=== PATIENT | female | born 1980 | race Hispanic/Latino ===

== ENCOUNTER 2018-10-15 22:54 | Emergency (ER) | payer OTHER ==
[2018-10-15] MEDS ORDERED: DUONEB *Not for PRN Use IH ONE ×2 (23:02→23:09)
--- NOTE | 2018-10-16 00:27 | XRay Report ---
PROCEDURE: XR CHEST ROUTINE 2V TECHNIQUE: PA and lateral chest radiographs were obtained. HISTORY: cough and wheezing COMPARISONS: None. FINDINGS: Heart: Normal size. Mediastinum/Vessels: Normal. Lungs/Pleural space: Clear.. Bony thorax: No acute osseous abnormality. IMPRESSION: Negative examination. This document is electronically signed by Alex Bunn MD., October 16 2018 12:25:08 AM ET
[2018-10-16] MEDS ORDERED: PROVENTIL IH ONE (00:57)
[2018-10-16] MEDS ORDERED: ATROVENT IH ONE (00:57)
[2018-10-16] MEDS ORDERED: DECADRON IM ONE (00:58)
--- NOTE | 2018-10-16 01:18 | Emergency Department Report ---
ED Asthma HPI - General Chief Complaint: Adult Asthma Stated Complaint: DIFF BREATHING Time Seen by Provider: 10/16/18 00:51 Source: patient Mode of arrival: Ambulatory Limitations: No Limitations - History of Present Illness Initial Comments: Patient is a 37-year-old female presents to the emergency room with complaints of wheezing and shortness of breath that began 5 days ago. She has an associated dry cough and chest discomfort with frequent coughing. She denies any fever. She states she has a history of asthma and ran out of her albuterol inhaler yesterday. She states she works at [employer] and is frequently around smoke from [place] [employer]. She denies any other past medical history. - Related Data Previous Rx's Medication Instructions Recorded Last Taken Type ALBUTEROL Inhaler (OR & NICU) 2 puff IH QID PRN #1 inhalation 10/16/18 Unknown Rx [ProAir HFA Inhaler] Prednisone [predniSONE 10 mg 10 mg PO .TAPER #1 tab.ds.pk 10/16/18 Unknown Rx (6-Day Pack, 21 Tabs)] Allergies Allergy/AdvReac Type Severity Reaction Status Date / Time acetaminophen [From Percocet] Allergy Rash Verified 10/15/18 23:08 amoxicillin Allergy Swelling Verified 10/15/18 23:08 oxycodone [From Percocet] Allergy Rash Verified 10/15/18 23:08 ED Review of Systems ROS: Stated complaint: DIFF BREATHING Other details as noted in HPI Comment: All other systems reviewed and negative ED Past Medical Hx - Past Medical History Previous Medical History?: Yes Hx Asthma: Yes - Surgical History Past Surgical History?: No - Social History Smoking Status: Current Every Day Smoker Substance Use Type: None - Medications Home Medications: Home Medications Medication Instructions Recorded Confirmed Last Taken Type ALBUTEROL Inhaler (OR & NICU) 2 puff IH QID PRN #1 inhalation 10/16/18 Unknown Rx [ProAir HFA Inhaler] Prednisone [predniSONE 10 mg 10 mg PO .TAPER #1 tab.ds.pk 10/16/18 Unknown Rx (6-Day Pack, 21 Tabs)] ED Physical Exam - General Limitations: No Limitations General appearance: alert, in no apparent distress - Head Head exam: Present: atraumatic, normocephalic - Eye Eye exam: Present: normal appearance, PERRL - ENT ENT exam: Present: mucous membranes moist - Respiratory Respiratory exam: Present: wheezes (moderate diffuse), prolonged expiratory. Absent: respiratory distress, rales, rhonchi, stridor, chest wall tenderness, accessory muscle use, decreased breath sounds - Cardiovascular Cardiovascular Exam: Present: regular rate, normal rhythm, normal heart sounds. Absent: systolic murmur, diastolic murmur, rubs, gallop - Neurological Exam Neurological exam: Present: alert, oriented X3 - Psychiatric Psychiatric exam: Present: normal affect, normal mood - Skin Skin exam: Present: warm, dry, intact ED Course Vital Signs 10/16/18 10/16/18 10/16/18 01:28 01:49 02:18 Temperature 98.1 F Pulse Rate 75 Pulse Rate [ 78 69 Bilateral Throughout] Respiratory 16 Rate Respiratory 18 18 Rate [Bilateral Throughout] Blood Pressure 125/65 [Left] O2 Sat by Pulse 96 Oximetry - Reevaluation(s) Reevaluation #1: 10/16/18 01:18 pt given duoneb in triage, still with continued wheezing, ordered another neb tx and decadron. Reevaluation #2: 10/16/18 02:03 s/p second neb tx, wheezing has improved, good air movement, slight wheezing in the bases ED Medical Decision Making - Radiology Data Radiology results: report reviewed PROCEDURE: XR CHEST ROUTINE 2V TECHNIQUE: PA and lateral chest radiographs were obtained. HISTORY: cough and wheezing COMPARISONS: None. FINDINGS: Heart: Normal size. Mediastinum/Vessels: Normal. Lungs/Pleural space: Clear.. Bony thorax: No acute osseous abnormality. IMPRESSION: Negative examination. This document is electronically signed by Nikky Bunn MD., October 16 2018 12:25:08 AM ET Transcribed By: DFN Dictated By: NIKKY BUNN MD Electronically Authenticated By: NIKKY BUNN MD Signed Date/Time: 10/16/18 0027 - Medical Decision Making Patient is a 37-year-old female presents to the emergency room with complaints of wheezing and shortness of breath that began 5 days ago. She has an associated dry cough and chest discomfort with frequent coughing. She denies any fever. She states she has a history of asthma and ran out of her albuterol inhaler yesterday. She states she works at [employer] and is frequently around smoke from [employer]. She denies any other past medical history. pt given duo neb in triage, s/p neb tx continued wheezing. pt given second treatment with 5 mg albuterol and 0.5 atrovent, wheezing improved, good air movement, mild wheeze at the bases. vitals are normal. CXR with no acute process. pt given dexamethasone while in the ED. pt given prescription for albuterol and medrol dose pack. advised pt to please take medication as prescribed. Follow up with primary care doctor in the next 2-3 days. Return to the emergency room for any new or worsening symptoms. Critical care attestation.: If time is entered above; I have spent that time in minutes in the direct care of this critically ill patient, excluding procedure time. ED Disposition Clinical Impression: Asthma Qualifiers: Asthma severity: unspecified severity Asthma persistence: unspecified Asthma complication type: with acute exacerbation Qualified Code(s): J45.901 - Unspecified asthma with (acute) exacerbation Disposition: TO HOME OR SELFCARE Is pt being admited?: No Does the pt Need Aspirin: No Condition: Stable Instructions: Asthma (ED) Additional Instructions: Please take medication as prescribed. Follow up with primary care doctor in the next 2-3 days. Return to the emergency room for any new or worsening symptoms. Prescriptions: Prednisone [predniSONE 10 mg (6-Day Pack, 21 Tabs)] 10 mg PO .TAPER #1 tab.ds.pk ALBUTEROL Inhaler (OR & NICU) [ProAir HFA Inhaler] 2 puff IH QID PRN #1 inhalation PRN Reason: Shortness Of Breath Referrals: ROSAILA ORDONEZ MD [Primary Care Provider] - 2-3 Days [facility] [Outside] - 2-3 Days [facility] [Outside] - 2-3 Days Time of Disposition: 02:04 Print Language: RUSSIAN
[2018-10-16 02:20] VITALS: BP 125/65
== END 2018-10-16 02:18 | disposition home or self-care (01) ==
LOC: ED 22:54
DX: J45.901 Unspecified asthma with (acute) exacerbation (principal); F17.200 Nicotine dependence, unspecified, uncomplicated; Z88.6 Allergy status to analgesic agent; Z88.1 Allergy status to other antibiotic agents
CPT/HCPCS: 71046; 94640; 96372; 99283; J1100

== ENCOUNTER 2018-10-19 10:41 | Emergency (ER) | payer SELFPAY ==
[2018-10-19] MEDS ORDERED: ATROVENT IH ONE (10:48)
[2018-10-19] MEDS ORDERED: PROVENTIL IH ONE (10:48)
[2018-10-19] MEDS ORDERED: ADRENALINE P/F SUB-Q ONE (10:58)
[2018-10-19] MEDS ORDERED: MAGNESIUM SULFATE 2GM/50ML 2 GM/50 ML BAG IV ONE (10:58)
[2018-10-19] MEDS ORDERED: SOLU-Medrol IV ONE (10:58)
[2018-10-19] MEDS ORDERED: NACL 0.9% 1000 ML 1,000 ML IV ONE (10:59)
--- NOTE | 2018-10-19 11:04 | Emergency Department Report ---
ED Asthma HPI - General Chief Complaint: Dyspnea/Respdistress Stated Complaint: ASTHMA Time Seen by Provider: 10/19/18 10:54 Source: patient, RN notes reviewed, old records reviewed Mode of arrival: Ambulatory Limitations: No Limitations - History of Present Illness Initial Comments: This is a pleasant 37-year-old female. The patient does not known to this provider previously. The patient states she is not . The patient has a history of asthma. She was diagnosed at the age of 21. The patient's has 1 (hospitalization but no intubations. Patient maintained on Advair as an outpatient, but does not think it is really working for her. Presents to the ER today with a complaint of painless asthma exacerbation. Symptoms include cough, wheezing, shortness of breath. Patient believes triggers include hot weather, and possible pollen. The patient denies DVT, pulmonary embolism risk factors. She denies other complaints besides cough, wheezing, shortness of breath. MD Complaint: "asthma attack", shortness of breath, wheezing -: Gradual, hour(s) Asthma History: adult onset, history of prior ED visit Severity: moderate Context: allergen exposure Associated Symptoms: dry cough - Related Data Previous Rx's Medication Instructions Recorded Last Taken Type ALBUTEROL Inhaler (OR & NICU) 2 puff IH QID PRN #1 inhalation 10/19/18 Unknown Rx [ProAir HFA Inhaler] Prednisone [predniSONE 10 mg 10 mg PO .TAPER #1 tab.ds.pk 10/19/18 Unknown Rx (6-Day Pack, 21 Tabs)] Allergies Allergy/AdvReac Type Severity Reaction Status Date / Time acetaminophen [From Percocet] Allergy Rash Verified 10/15/18 23:08 amoxicillin Allergy Swelling Verified 10/15/18 23:08 oxycodone [From Percocet] Allergy Rash Verified 10/15/18 23:08 ED Review of Systems ROS: Stated complaint: ASTHMA Other details as noted in HPI Comment: All other systems reviewed and negative Respiratory: cough, shortness of breath, SOB with exertion, SOB at rest, wheezing Cardiovascular: dyspnea on exertion ED Past Medical Hx - Past Medical History Previous Medical History?: Yes Hx Asthma: Yes - Surgical History Past Surgical History?: No - Social History Smoking Status: Unknown if ever smoked Substance Use Type: None - Medications Home Medications: Home Medications Medication Instructions Recorded Confirmed Last Taken Type ALBUTEROL Inhaler (OR & NICU) 2 puff IH QID PRN #1 inhalation 10/19/18 Unknown Rx [ProAir HFA Inhaler] Prednisone [predniSONE 10 mg 10 mg PO .TAPER #1 tab.ds.pk 10/19/18 Unknown Rx (6-Day Pack, 21 Tabs)] ED Physical Exam - General Limitations: No Limitations General appearance: alert, in no apparent distress - Head Head exam: Present: atraumatic, normocephalic - Eye Eye exam: Present: normal appearance, EOMI. Absent: nystagmus - ENT ENT exam: Present: normal exam, normal orophraynx, mucous membranes moist, normal external ear exam - Neck Neck exam: Present: normal inspection, full ROM. Absent: tenderness, meningismus - Respiratory Respiratory exam: Present: respiratory distress, wheezes, rhonchi - Cardiovascular Cardiovascular Exam: Present: regular rate, normal rhythm, normal heart sounds. Absent: bradycardia, tachycardia, irregular rhythm, systolic murmur, diastolic murmur, rubs, gallop - GI/Abdominal GI/Abdominal exam: Present: soft. Absent: distended, tenderness, guarding, rebound, rigid, pulsatile mass - Extremities Exam Extremities exam: Present: normal inspection, full ROM, other (2+ pulses noted in the bilateral upper, lower extremities. Compartments soft. No long bony tenderness. The pelvis is stable.). Absent: pedal edema, calf tenderness - Back Exam Back exam: Present: normal inspection, full ROM. Absent: tenderness, CVA tenderness (R), CVA tenderness (L), paraspinal tenderness, vertebral tenderness - Neurological Exam Neurological exam: Present: alert, oriented X3, other (Extraocular movements intact. Tongue midline. No facial droop. Facial sensation intact to light touch in the V1, V2, V3 distribution bilaterally. 5 and 5 strength in 4 extremities.. Sensation is intact to light touch in 4 extremities.). Absent: motor sensory deficit - Psychiatric Psychiatric exam: Present: anxious - Skin Skin exam: Present: warm, dry, intact, normal color. Absent: rash ED Course Vital Signs 10/19/18 10/19/18 10/19/18 10:51 10:52 11:56 Temperature 97.8 F Pulse Rate 65 Pulse Rate [ 77 79 Anterior Bilateral] Respiratory 19 19 Rate Respiratory 17 12 Rate [Anterior Bilateral] Blood Pressure 126/71 [Left] O2 Sat by Pulse 99 99 Oximetry - Reevaluation(s) Reevaluation #1: 10/19/18 11:15 Differential diagnosis, including not limited to: Asthma, bronchitis, allergies Assessment and plan: 37-year-old female, with no DVT or pulmonary embolism risk factors, low risk by well's criteria, perc negative, recently seen at this hospital for asthma attack, had x-ray of the chest which was negative, initially had improved symptoms, she is new to [place], now with recurrent asthma attack. The patient is afebrile, with reassuring vital signs. She is watching movies on a cellular phone. We will treat her with albuterol, Atrovent, steroids, magnesium, fluids, and subcutaneous epinephrine. We will reassess. Reevaluation #2: 10/19/18 11:58 Patient feels much improved. Had a single episode of nausea and vomiting, now resolved. Work of breathing much improved. Wheezing much improved. Much improved from symptomatic and clinical standpoint. The patient endorses readiness for discharge. The patient indicates she was not able to get her prescriptions filled from her previous visit, secondary to financial issues. Patient was instructed on how to download the good Rx application on her cellular phone device, and how to find affordable and competitively [place] prescriptions. The patient will also be given a pharmacy discount card. I have also counseled the patient to follow-up in outpatient channel marketing manager for outpatient maintenance therapy. She has endorsed understanding. ED Medical Decision Making - Lab Data Vital Signs 10/19/18 10/19/18 10:51 10:52 Temperature 97.8 F Pulse Rate 65 Pulse Rate [ 77 Anterior Bilateral] Respiratory 19 19 Rate Respiratory 17 Rate [Anterior Bilateral] Blood Pressure 126/71 [Left] O2 Sat by Pulse 99 99 Oximetry - Radiology Data Radiology results: report reviewed, image reviewed Critical care attestation.: If time is entered above; I have spent that time in minutes in the direct care of this critically ill patient, excluding procedure time. ED Disposition Clinical Impression: Asthma Qualifiers: Asthma severity: moderate Asthma persistence: unspecified Asthma complication type: uncomplicated Qualified Code(s): J45.909 - Unspecified asthma, uncomplic ated Disposition: DC-01 TO HOME OR SELFCARE Is pt being admited?: No Does the pt Need Aspirin: No Condition: Stable Instructions: Asthma (ED) Additional Instructions: Take medications as needed/directed. Follow up with a primary care doctor or pu lmonologist within the next 2-4 weeks. Return to the emergency room right away with it, worsening or different symptoms, or symptoms not present on the initial emergency room evaluation. Referrals: ROSALIA ORDONEZ MD [Primary Care Provider] - 3-5 Days EBONY CHOI MD [Staff Physician] - 3-5 Days
[2018-10-19] MEDS ORDERED: ZOFRAN ONE (11:25)
[2018-10-19] MEDS ORDERED: ZOFRAN IV ONE (11:32)
[2018-10-19 12:21] VITALS: BP 118/70
== END 2018-10-19 12:21 | disposition home or self-care (01) ==
LOC: ED 10:41
DX: J45.901 Unspecified asthma with (acute) exacerbation (principal); R11.2 Nausea with vomiting, unspecified; Z88.5 Allergy status to narcotic agent; Z79.899 Other long term (current) drug therapy
CPT/HCPCS: 94640; 96365; 96372; 96375; 99284; J0171; J2405; J2930; J3475; J7030

== ENCOUNTER 2019-01-16 12:00 | Emergency (ER) | payer SELFPAY ==
[2019-01-16 12:06] VITALS: BP 130/85
[2019-01-16] MEDS ORDERED: IPRATROPIUM/ALBUTEROL SULFATE 3 ML AMPUL.NEB IH ONE (12:06)
--- NOTE | 2019-01-16 12:08 | Event Note ---
ED Screening Note Date of service: 01/16/19 Time: 12:05 ED Screening Note: This is a 38 y.o. F. that presents to the ER with SOB and wheezing for 2 weeks. PMH of asthma Increased use of inhalers and neb treatments without relief. Quit smoking 3 days ago This initial assessment/diagnostic orders/clinical plan/treatment(s) is/are subject to change based on patients health status, clinical progression and re- assessment by fellow clinical providers in the ED. Further treatment and workup at subsequent clinical providers discretion. Patient/guardian urged not to elope from the ED as their condition may be serious if not clinically assessed and managed. Initial orders include: CXR Duoneb
[2019-01-16] MEDS ORDERED: dexAMETHasone 20 MG/5 ML VIAL IM ONE (12:15)
[2019-01-16] MEDS ORDERED: IPRATROPIUM 0.02% NEBU 2.5 ML IH ONE (12:22)
[2019-01-16] MEDS ORDERED: ALBUTEROL 2.5 MG/3 ML NEBU IH ONE (12:22)
--- NOTE | 2019-01-16 13:18 | Emergency Department Report ---
ED Asthma HPI - General Chief Complaint: Adult Asthma Stated Complaint: ASTHMA ATTACK Time Seen by Provider: 01/16/19 12:04 Source: patient Mode of arrival: Ambulatory Limitations: No Limitations - History of Present Illness Initial Comments: This is a 38-year-old female nontoxic, well nourished in appearance, no acute signs of distress presents to the ED with c/o of acute on chronic asthma exacerbation. Patient denies any cough. Patient denies any sick contact. Patient denies any recent travels, long car, recent hospital stays. Patient denies any calf pain or calf tenderness. Patient denies any chest pain, short of breath, fever, chills, nausea, vomiting, hemoptysis, numbness, tingling, headache or stiff neck. Patient stated allergies amoxicillin, Acetaminophen, and oxycodone. MD Complaint: "asthma attack", shortness of breath, wheezing -: days(s) Asthma History: childhood onset Severity: mild Context: none known Associated Symptoms: none - Related Data Previous Rx's Medication Instructions Recorded Last Taken Type ALBUTEROL Inhaler (OR & NICU) 2 puff IH QID PRN #1 inhalation 10/19/18 Unknown Rx [ProAir HFA Inhaler] Prednisone [predniSONE 10 mg 10 mg PO .TAPER #1 tab.ds.pk 10/19/18 Unknown Rx (6-Day Pack, 21 Tabs)] ALBUTEROL Inhaler (OR & NICU) 2 puff IH QID PRN #1 inhalation 01/09/19 Unknown Rx [ProAir HFA Inhaler] Benzonatate [Tessalon Perles] 100 mg PO Q8HR #10 capsule 01/09/19 Unknown Rx predniSONE [Deltasone] 20 mg PO QDAY #5 tab 01/09/19 Unknown Rx ALBUTEROL Inhaler (OR & NICU) 2 puff IH QID PRN #1 inhalation 01/16/19 Unknown Rx [ProAir HFA Inhaler] ALBUTEROL NEB's [Proventil 0.083% 2.5 mg IH TID PRN #1 box 01/16/19 Unknown Rx NEBS] Prednisone [predniSONE 10 mg 10 mg PO .TAPER #1 tab.ds.pk 01/16/19 Unknown Rx (6-Day Pack, 21 Tabs)] Allergies Allergy/AdvReac Type Severity Reaction Status Date / Time acetaminophen [From Percocet] Allergy Rash Verified 10/15/18 23:08 amoxicillin Allergy Swelling Verified 10/15/18 23:08 oxycodone [From Percocet] Allergy Rash Verified 10/15/18 23:08 ED Review of Systems ROS: Stated complaint: ASTHMA ATTACK Other details as noted in HPI Constitutional: denies: chills, fever Eyes: denies: eye pain, eye discharge, vision change ENT: denies: ear pain, throat pain Respiratory: shortness of breath, wheezing. denies: cough Cardiovascular: denies: chest pain, palpitations Endocrine: no symptoms reported Gastrointestinal: denies: abdominal pain, nausea, diarrhea Genitourinary: denies: urgency, dysuria, discharge Musculoskeletal: denies: back pain, joint swelling, arthralgia Skin: denies: rash, lesions Neurological: denies: headache, weakness, paresthesias Psychiatric: denies: anxiety, depression Hematological/Lymphatic: denies: easy bleeding, easy bruising ED Past Medical Hx - Past Medical History Hx Asthma: Yes - Surgical History Past Surgical History?: No - Social History Smoking Status: Current Some Day Smoker Substance Use Type: None - Medications Home Medications: Home Medications Medication Instructions Recorded Confirmed Last Taken Type ALBUTEROL Inhaler (OR & NICU) 2 puff IH QID PRN #1 inhalation 10/19/18 Unknown Rx [ProAir HFA Inhaler] Prednisone [predniSONE 10 mg 10 mg PO .TAPER #1 tab.ds.pk 10/19/18 Unknown Rx (6-Day Pack, 21 Tabs)] ALBUTEROL Inhaler (OR & NICU) 2 puff IH QID PRN #1 inhalation 01/09/19 Unknown Rx [ProAir HFA Inhaler] Benzonatate [Tessalon Perles] 100 mg PO Q8HR #10 capsule 01/09/19 Unknown Rx predniSONE [Deltasone] 20 mg PO QDAY #5 tab 01/09/19 Unknown Rx ALBUTEROL Inhaler (OR & NICU) 2 puff IH QID PRN #1 inhalation 01/16/19 Unknown Rx [ProAir HFA Inhaler] ALBUTEROL NEB's [Proventil 0.083% 2.5 mg IH TID PRN #1 box 01/16/19 Unknown Rx NEBS] Prednisone [predniSONE 10 mg 10 mg PO .TAPER #1 tab.ds.pk 01/16/19 Unknown Rx (6-Day Pack, 21 Tabs)] ED Physical Exam - General Limitations: No Limitations General appearance: alert, in no apparent distress - Head Head exam: Present: atraumatic, normocephalic - Neck Neck exam: Present: normal inspection, full ROM. Absent: tenderness, meningismus, lymphadenopathy - Respiratory Respiratory exam: Present: normal lung sounds bilaterally, wheezes (bilateral ). Absent: respiratory distress, rales, rhonchi, stridor, chest wall tenderness, accessory muscle use, decreased breath sounds, prolonged expiratory - Cardiovascular Cardiovascular Exam: Present: regular rate, normal rhythm, normal heart sounds. Absent: systolic murmur, diastolic murmur, rubs, gallop - Extremities Exam Extremities exam: Present: normal inspection, full ROM, normal capillary refill. Absent: tenderness - Back Exam Back exam: Present: normal inspection, full ROM - Neurological Exam Neurological exam: Present: alert, oriented X3, normal gait - Psychiatric Psychiatric exam: Present: normal affect, normal mood - Skin Skin exam: Present: warm, dry, intact, normal color. Absent: rash ED Course Vital Signs 01/16/19 01/16/19 01/16/19 12:04 12:14 12:29 Temperature 97.8 F Pulse Rate 99 H Pulse Rate [ 94 H 85 Anterior Bilateral] Respiratory 19 Rate Respiratory 20 22 Rate [Anterior Bilateral] Blood Pressure 130/85 O2 Sat by Pulse 96 Oximetry - Reevaluation(s) Reevaluation #1: 01/16/19 13:22 Patient is speaking in full sentences with no signs of distress noted. ED Medical Decision Making - Medical Decision Making This is a 38-year-old female that presents with asthma exacerbation. Patient is stable and was examined by me. Chest x-ray has been obtained and dictated by the radiologist within normal limits. Patient is notified of the x-ray report with no questions noted by the patient. Patient did receive breathign treatmetn and steroids in the ED which patient the symptoms has resolved and subsided. Posttreatment and there is no wheezing upon auscultation. Patient is discharged with albuterol and prednisone. Patient was referred to Follow-up with a primary care doctor in 3-5 days or if symptoms worsen and continue return to emergency room as soon as possible. At time of discharge, the patient does not seem toxic or ill in appearance. No acute signs of distress noted. Patient agrees to discharge treatment plan of care. No further questions noted by the patient. This chart is dictated with using [employer] Dictation Program Critical care attestation.: If time is entered above; I have spent that time in minutes in the direct care of this critically ill patient, excluding procedure time. ED Disposition Clinical Impression: Asthma exacerbation Qualifiers: Asthma severity: mild Asthma persistence: intermittent Qualified Code(s): J45.21 - Mild intermittent asthma with (acute) exacerbation Disposition: TO HOME OR SELFCARE Is pt being admited?: No Does the pt Need Aspirin: No Condition: Stable Instructions: Asthma (ED) Additional Instructions: Follow-up with a primary care doctor in 3-5 days or if symptoms worsen and continue return to emergency room as soon as possible. Prescriptions: Prednisone [predniSONE 10 mg (6-Day Pack, 21 Tabs)] 10 mg PO .TAPER #1 tab.ds.pk ALBUTEROL Inhaler (OR & NICU) [ProAir HFA Inhaler] 2 puff IH QID PRN #1 inhalation PRN Reason: Shortness Of Breath ALBUTEROL NEB's [Proventil 0.083% NEBS] 2.5 mg IH TID PRN #1 box PRN Reason: Wheezing Referrals: PRIMARY CARE, [Referring] - 3-5 Days AUNDREA FRANCES MD [Staff Physician] - 3-[address] [facility] [Outside] - 3-5 Days [facility] [Outside] - 3-5 Days Forms: Work/School Release Form(ED)
--- NOTE | 2019-01-16 13:52 | XRay Report ---
CHEST 2 VIEWS INDICATION / CLINICAL INFORMATION: SOB and cough. COMPARISON: 2 views of the chest from 10/07/2018. FINDINGS: SUPPORT DEVICES: None. HEART / MEDIASTINUM: No significant abnormality. LUNGS / PLEURA: No significant pulmonary or pleural abnormality. No pneumothorax. ADDITIONAL FINDINGS: No significant additional findings. IMPRESSION: No acute abnormality of the chest. Signer Name: Preston Singh MD Signed: 01/16/2019 1:48 PM Workstation Name: [id number]
== END 2019-01-16 14:22 | disposition home or self-care (01) ==
LOC: ED 12:00
DX: J45.901 Unspecified asthma with (acute) exacerbation (principal); F17.200 Nicotine dependence, unspecified, uncomplicated; Z88.1 Allergy status to other antibiotic agents; Z88.5 Allergy status to narcotic agent; Z79.899 Other long term (current) drug therapy
CPT/HCPCS: 71046; 94640; 96372; 99284; J1100; 94644

== ENCOUNTER 2019-02-11 21:50 | Emergency (ER) | payer SELFPAY ==
[2019-02-11] MEDS ORDERED: ALBUTEROL 2.5 MG/3 ML NEBU IH ONE (21:55)
[2019-02-11] MEDS ORDERED: MAGNESIUM SULFATE 2 GM/50 ML BAG IV ONE (21:55)
[2019-02-11] MEDS ORDERED: IPRATROPIUM 0.02% NEBU 2.5 ML IH STA (21:55)
[2019-02-11] MEDS ORDERED: methylPREDNISolone Sod Succinate 125 MG/2 ML INJ IV ONE (21:55)
--- NOTE | 2019-02-11 21:58 | Emergency Department Report ---
Blank Doc - Documentation Documentation: 38 y/o female with history of asthma presents to ED c/o of a 2-3 day flare up that has not responded to home nebulizer and 20mg prednisone bid for 1 day. This initial assessment/diagnostic orders/clinical plan/treatment(s) is/are subject to change based on patient's health status, clinical progression and re- assessment by fellow clinical providers in the ED. Further treatment and workup at subsequent clinical providers discretion. Patient/guardians urged not to elope from the ED as their condition may be serious if not clinically assessed and managed. Initial orders include: exam increase work of breathing and wheezing Plan xray and nebulizer magnesium
[2019-02-11] MEDS ORDERED: IPRATROPIUM 0.02% NEBU 2.5 ML IH ONE (22:29)
--- NOTE | 2019-02-11 22:42 | Emergency Department Report ---
ED Asthma HPI - General Chief Complaint: Adult Asthma Stated Complaint: YANET Time Seen by Provider: 02/11/19 21:55 Source: patient Mode of arrival: Ambulatory Limitations: No Limitations - History of Present Illness Initial Comments: 38-year-old female with a past medical history of asthma presents to the hospital complaining with shortness of breath 3 days. Patient is not experiencing any relief from her home nebulizer. She took some left over prednisone 40mg total today. Patient denies previous intubations but history of asthma hospitalization. She complains of cough productive of clear white sputum without fever. She is continues to smoke cigarettes but decreased to 1 pack per week. - Related Data Previous Rx's Medication Instructions Recorded Last Taken Type ALBUTEROL Inhaler (OR & NICU) 2 puff IH QID PRN #1 inhalation 01/09/19 Unknown Rx [ProAir HFA Inhaler] Benzonatate [Tessalon Perles] 100 mg PO Q8HR #10 capsule 01/09/19 Unknown Rx predniSONE [Deltasone] 20 mg PO QDAY #5 tab 01/09/19 Unknown Rx ALBUTEROL Inhaler (OR & NICU) 2 puff IH QID PRN #1 inhalation 01/16/19 Unknown Rx [ProAir HFA Inhaler] Prednisone [predniSONE 10 mg 10 mg PO .TAPER #1 tab.ds.pk 01/16/19 Unknown Rx (6-Day Pack, 21 Tabs)] ALBUTEROL Inhaler (OR & NICU) 2 puff IH QID PRN #1 inhalation 02/12/19 Unknown Rx [ProAir HFA Inhaler] ALBUTEROL NEB's [Proventil 0.083% 2.5 mg IH TID PRN #1 box 02/12/19 Unknown Rx NEBS] Prednisone [predniSONE 10 mg 10 mg PO .TAPER #1 tab.ds.pk 02/12/19 Unknown Rx (6-Day Pack, 21 Tabs)] Allergies Allergy/AdvReac Type Severity Reaction Status Date / Time acetaminophen [From Percocet] Allergy Rash Verified 10/15/18 23:08 amoxicillin Allergy Swelling Verified 10/15/18 23:08 oxycodone [From Percocet] Allergy Rash Verified 10/15/18 23:08 ED Review of Systems ROS: Stated complaint: YANET Other details as noted in HPI Comment: All other systems reviewed and negative ED Past Medical Hx - Past Medical History Previous Medical History?: Yes Hx Asthma: Yes - Surgical History Past Surgical History?: Yes Additional Surgical History: tubal - Social History Smoking Status: Current Every Day Smoker Substance Use Type: Marijuana - Medications Home Medications: Home Medications Medication Instructions Recorded Confirmed Last Taken Type ALBUTEROL Inhaler (OR & NICU) 2 puff IH QID PRN #1 inhalation 01/09/19 Unknown Rx [ProAir HFA Inhaler] Benzonatate [Tessalon Perles] 100 mg PO Q8HR #10 capsule 01/09/19 Unknown Rx predniSONE [Deltasone] 20 mg PO QDAY #5 tab 01/09/19 Unknown Rx ALBUTEROL Inhaler (OR & NICU) 2 puff IH QID PRN #1 inhalation 01/16/19 Unknown Rx [ProAir HFA Inhaler] Prednisone [predniSONE 10 mg 10 mg PO .TAPER #1 tab.ds.pk 01/16/19 Unknown Rx (6-Day Pack, 21 Tabs)] ALBUTEROL Inhaler (OR & NICU) 2 puff IH QID PRN #1 inhalation 02/12/19 Unknown Rx [ProAir HFA Inhaler] ALBUTEROL NEB's [Proventil 0.083% 2.5 mg IH TID PRN #1 box 02/12/19 Unknown Rx NEBS] Prednisone [predniSONE 10 mg 10 mg PO .TAPER #1 tab.ds.pk 02/12/19 Unknown Rx (6-Day Pack, 21 Tabs)] ED Physical Exam - General Limitations: No Limitations - Other Other exam information: General: No acute distress Head: Atraumatic Eyes: normal appearance ENT: Moist mucous membranes Neck: Normal appearance, no midline tenderness Chest: Bilateral wheezing, tachypnea, mild accessory muscle use CV: Mild tachycardia regular rhythm Abdomen: Soft, normal bowel sounds, nontender, nondistended, no rebound or guarding Back: Normal inspection Extremity: Normal inspection infection, full range of motion Neuro: Alert O x 3, no facial asymmetry, speech clear, no gross motor sensory deficit Psych: Appropriate behavior Skin: No rash ED Course Vital Signs 02/11/19 02/12/19 02/12/19 22:29 00:08 00:35 Temperature 98.2 F Pulse Rate 100 H 100 H Pulse Rate [ 78 Anterior] Respiratory 24 18 Rate Respiratory 20 Rate [Anterior] Blood Pressure 133/96 122/79 [Left] O2 Sat by Pulse 93 94 Oximetry - Reevaluation(s) Reevaluation #1: 02/12/19 00:34 pt with residual mild scattered wheezing. pt states she feels well enough go go home. ED Medical Decision Making - Radiology Data Radiology results: report reviewed CHEST 2 VIEWS INDICATION / CLINICAL INFORMATION: MAIN: Asthma YANET HX of asthma with wheezing X 3 days. COMPARISON: 01/16/2019. FINDINGS: SUPPORT DEVICES: None. HEART / MEDIASTINUM: The heart size and pulmonary vasculature are normal. LUNGS / PLEURA: No significant pulmonary or pleural abnormality. No pneumothorax. ADDITIONAL FINDINGS: No significant additional findings. IMPRESSION: No acute abnormality or significant change. - Medical Decision Making acute asthma improved with mag, nebs, steroids cxr neg plan to d/c home with f/u - Differential Diagnosis asthma, COPD, CHF, pneumonia, bronchitis Critical Care Time: No Critical care attestation.: If time is entered above; I have spent that time in minutes in the direct care of this critically ill patient, excluding procedure time. ED Disposition Clinical Impression: Acute asthma exacerbation Disposition: [id number] TO HOME OR SELFCARE Is pt being admited?: No Does the pt Need Aspirin: No Condition: Stable Instructions: Asthma (ED) Additional Instructions: Take the medication as prescribed. Follow-up with your doctor or doctor/clinic provided. Return if symptoms worsen as indicated by your discharge instructions. Prescriptions: Prednisone [predniSONE 10 mg (6-Day Pack, 21 Tabs)] 10 mg PO .TAPER #1 tab.ds.pk ALBUTEROL Inhaler (OR & NICU) [ProAir HFA Inhaler] 2 puff IH QID PRN #1 inhalation PRN Reason: Shortness Of Breath ALBUTEROL NEB's [Proventil 0.083% NEBS] 2.5 mg IH TID PRN #1 box PRN Reason: Wheezing [facility] [Primary Care Provider] - 3-5 Days ARMINDA CONTI MD [Staff Physician] - 3-5 Days (lung specialist ) Time of Disposition: 00:42
--- NOTE | 2019-02-11 23:10 | XRay Report ---
CHEST 2 VIEWS INDICATION / CLINICAL INFORMATION: MAIN: Asthma YANET HX of asthma with wheezing X 3 days. COMPARISON: 01/16/2019. FINDINGS: SUPPORT DEVICES: None. HEART / MEDIASTINUM: The heart size and pulmonary vasculature are normal. LUNGS / PLEURA: No significant pulmonary or pleural abnormality. No pneumothorax. ADDITIONAL FINDINGS: No significant additional findings. IMPRESSION: No acute abnormality or significant change. Signer Name: Kurt Vergara MD Signed: 02/11/2019 11:06 PM Workstation Name: [id number]
[2019-02-12 00:36] VITALS: BP 122/79
== END 2019-02-12 02:50 | disposition home or self-care (01) ==
LOC: ED 21:50
DX: J45.901 Unspecified asthma with (acute) exacerbation (principal); F17.200 Nicotine dependence, unspecified, uncomplicated; F12.10 Cannabis abuse, uncomplicated; Z88.1 Allergy status to other antibiotic agents; Z88.5 Allergy status to narcotic agent; Z88.8 Allergy status to other drugs, medicaments and biological substances; Z79.899 Other long term (current) drug therapy
CPT/HCPCS: 71046; 94640; 96365; 96375; 99284; J2930; J3475; 94644